=== PATIENT | male | born 1990 | race Caucasian/White ===

== ENCOUNTER 2024-04-25 14:13 | Emergency (ER) | payer OTHER, SELFPAY ==
[2024-04-25 14:15] VITALS: BP 145/92; PULSE 99; RESP 16; TEMP 36.2; O2SAT 97; BMI 31.9
--- NOTE | 2024-04-25 14:48 | EX.ED.DYSGE1 ---
HPI History of Present Illness Chief Complaint: Fever Informant: patient and spouse/S.O. Narrative Narrative: 34-year-old male presenting to the emergency room with fever. Patient states that about 1 week ago he noticed a circular erythematous rash on the dorsum of his foot at the base of the second and the third toe. Over the weekend he dropped a ladder which he thought hit the big toe but now there is some bruising where the rash was. He also notes a circular rash on his mid anterior chest. And a third circular rash on his left lower lumbar region. He notes generalized myalgias left ear pain occipital head pressure generalized neck soreness and woke today with a bit of a sore throat. No diarrhea or vomiting. He is at 103 fever for 72 hours. He does not recall any insect bites or sick contacts. 3 children and his at home are well. He states that he traveled to [place] 3 to 4 weeks ago to look at some property. He pulled the tick off his clothing but does not recall any bites. He has well water at home. He has been using Advil to reduce fever. He saw chiropractor this morning which did not help his neck. PFSH PFS Medical History no medical history no medical history Home Medications ?Medication ?Instructions ?Recorded ?Last Taken ?Type doxycycline monohydrate 100 mg 100 mg PO BID #20 CAPSULES 04/25/24 Unknown Rx capsule Allergy/AdvReac Type Severity Reaction Status Date / Time No Known Allergies Allergy Verified 04/25/24 14:16 Surgical History no surgical history no surgical history Social History Smoking Status: Never smoker [facility] ED Constitutional Constitutional ED: Reports fever(s); Denies chills or weight loss Eyes Eyes: Denies change in vision or diplopia ENT ENT ED: Reports ear pain and sore throat; Denies rhinorrhea Cardiovascular Cardiovascular: Denies chest pain, orthopnea, palpitations or racing heartbeat Respiratory/Chest Respiratory/Chest: Denies cough, dyspnea or orthopnea Gastrointestinal Gastrointestinal: Denies abdominal pain, diarrhea, nausea or vomiting Genitourinary Genitourinary ED: Denies dysuria, hematuria or urinary frequency Musculoskeletal Musculoskeletal: Reports neck pain; Denies arthralgias or myalgias Integumentary Reports rash; Denies abscess Neurologic Neurologic: Reports headache(s); Denies weakness Psychiatric Psychiatric: Denies anxiety, depression, suicidal ideation or suicidal thoughts Endocrine Endocrinology: Denies polydipsia, polyphagia or polyuria Allergic/Immunologic Allergic/Immunologic ED: Denies mouth swelling, tongue swelling or urticaria EXAM Physical Exam Const Vital Signs: 04/25/24 14:15 04/25/24 15:10 04/25/24 15:37 Temperature 97.2 F L 99.8 F H Temperature Source Temporal Oral Pulse Rate 99 84 Respiratory Rate 16 19 H Respiratory Effort Normal Respiratory Pattern Normal Blood Pressure 145/92 H 131/82 H Blood Pressure Mean 109 98 Pulse Ox 97 95 Oxygen Delivery Method Room Air Room Air 04/25/24 17:00 04/25/24 18:01 Temperature 98.3 F 98.1 F Temperature Source Oral Pulse Rate 82 84 Respiratory Rate 18 17 Respiratory Effort Respiratory Pattern Blood Pressure 119/84 H 136/67 H Blood Pressure Mean 95 90 Pulse Ox 97 99 Oxygen Delivery Method Room Air Positive well nourished and well developed General Appearance ED: well developed HEENT Reports normocephalic, head/scalp atraumatic and moist mucous membranes HEENT Narrative: There is slight erythema of the left tympanic membrane. There are some small less than half centimeter nontender palpable lymph nodes in the posterior chain. Mild pharyngeal erythema without exudate. No petechiae noted. There is no photophobia. Eyes PERRL and EOMs intact bilaterally Neck supple and no JVD Neck Narrative: Patient does not appear to have limitation in neck movement with direct testing either rotational sidebending or flexion extension. General: Negative for tenderness Resp normal respiratory effort and clear to auscultation bilaterally Cardio regular rate, regular rhythm and no murmurs GI normal to inspection, nondistended, normoactive bowel sounds and non-tender Palpation: soft Back/Spine no CVA tenderness and normal ROM Extremity normal to inspection General Extremety ED: Negative for edema General Extremity: Negative for edema Neuro oriented x3 and CN's II-XII intact bilaterally Sensorium / Orientation: alert Motor Exam: strength 5/5 throughout Psych mental status grossly normal Mood & Affect: Negative for depressed or tearful Skin no wounds Skin Narrative: Anterior chest demonstrates approximate 9 cm ovoid flat erythematous blanching rash. There is no central clearing. There is an approximately 3 cm round erythematous flat rash in the left lower lumbar skin. There is a flat erythematous rash circular of about 3 centimeters on the dorsum of the left foot at the base of the second and third toe with central ecchymosis. The erythema blanches. There is another rash in the left axilla that is similar to the others measuring 6 cm MDM MDM MDM Narrative Medical decision making narrative: Differential diagnosis includes but not limited to sepsis encephalitis/meningitis otitis media pharyngitis Shaheed-Ambrosio virus Lyme disease bacteremia NOS pneumonia UTI dehydration White blood cell count 6.3 with 8.1 lymphocytes 76 neutrophils 12.1 monocytes. Hemoglobin 14.8. BMP shows a glucose of 115. Normal anion gap CO2 of 23. Slight elevation of AST and ALT and elevated total bilirubin and direct bilirubin. Urinalysis is normal. Monoscreen is negative. Strep swab, RSV influenza and COVID test are negative. Magnapen interpretation of the chest x-ray is no acute process. My independent interpretation the plain films of the right foot is middle phalanx fracture of the second toe. Patient however is not tender here. The area of ecchymosis is more proximal to this. The fracture line I see only on 1 view. Patient received IV fluids and Toradol. Blood cultures were obtained. Lyme screen was sent. Pictures of the rash were taken for the medical record. Case and rash was discussed with infectious disease Dr. Randall. I spoke with the patient and his . We talked about the possibility of a lumbar puncture. However given his clinical presentation the fact that he clinically appears well has no photophobia no stiff neck no significant pain with movement of the neck a occipital headache I do question the risk-benefit advantage of doing an LP. They are in agreement of waiting. In speaking with infectious disease the recommendation will be to place him on a 10-day course of doxycycline. We talked about a very detailed return instructions and they note understanding of this. History & Record Review Discussion w/independent historian: Patient and Significant other Lab Data Attestation: I reviewed the patient's lab results. Labs: Laboratory Results - last 24 hr 04/25/24 04/25/24 15:03 16:28 WBC 6.3 RBC 4.92 Hgb 14.8 Hct 42.9 MCV 87.2 MCH 30.1 MCHC 34.5 RDW Std Deviation 40.8 RDW Coeff of Zachary 12.8 Plt Count 144 L MPV 8.1 Immature Gran % (Auto) 1.100 H Neut % (Auto) 76.0 H Lymph % (Auto) 8.1 L [place] % (Auto) 12.1 H Eos % (Auto) 1.9 Baso % (Auto) 0.8 Absolute Neuts (auto) 4.8 Absolute Lymphs (auto) 0.51 L Nucleated RBC % 0 Sodium 135 L Potassium 3.6 Chloride 104 Carbon Dioxide 23.0 Anion Gap 8 BUN 9 Creatinine 1.08 Estim Creat Clear Calc 124.06 Est GFR (MDRD) Af Amer 102 Est GFR (MDRD) Non-Af 84 BUN/Creatinine Ratio 8.3 L Glucose 115 H Calcium 9.0 Total Bilirubin 2.60 H Direct Bilirubin 0.51 H AST 90 H ALT 101 H Alkaline Phosphatase 88 Total Protein 7.8 Albumin 3.7 Globulin 4.1 Urine Color Yellow Urine Clarity Clear Urine pH 6.5 Ur Specific Fifield 1.010 Urine Protein 30 H Urine Glucose (UA) Normal Urine Ketones Negative Urine Occult Blood Negative Urine Nitrite Negative Urine Bilirubin Negative Urine Urobilinogen 4 H Ur Leukocyte Esterase Negative Urine RBC 0 SEEN Urine WBC 0 SEEN Ur Squamous Epith Cells 0 SEEN Urine Bacteria 0 SEEN Urine Mucus 0 SEEN Monoscreen Negative Radiography Diagnostic Testing: Clinical Impression(s) from Imaging Studies Foot X-Ray 04/25/24 14:52 IMPRESSION: Normal x-ray examination of the foot. Electronically Signed: Tae Mccurdy MD at 15:15 EDT , Chest X-Ray 04/25/24 15:01 IMPRESSION: Normal x-ray examination of the chest. Electronically Signed: Tae Mccurdy MD at 15:14 EDT , Management Discussion w/another healthcare provider: Nurse Case Management (Dr. Marques (ID)) Discharge Plan Triage Chief Complaint: Fever ED Provider: Nilton Macias Dx/Rx/DC Orders Clinical Impression: Acute febrile illness, Rash, Elevated liver enzymes Instructions: ED FUO Adult Prescriptions: New doxycycline monohydrate 100 mg capsule 100 mg PO BID Qty: 20 0RF Primary Care Provider: Care Physician,No Primary Referrals: Travis Marques MD [Med Staff - Active Staff] - 1-2 Weeks Care Physician,No Primary [Primary Care Provider] - Print Language: Maltese Disposition Disposition: Home, Self Care Discharge Date/Time: 04/25/24 18:03
--- NOTE | 2024-04-25 14:52 | RAD_ITS ---
STUDY: X-RAY - LEFT FOOT CLINICAL: Male, 34 years old. Injury TECHNIQUE: 4 view(s) of the foot. COMPARISON: None. FINDINGS: Normal talus, calcaneus, and tarsal bones. Normal visualized subtalar, talonavicular, calcaneocuboid, tarsal and tarsometatarsal articulations. Normal metatarsi. Normal metatarsophalangeal joint of the great toe. There is a bipartite fibula sesamoid. Normal interphalangeal joint of the great toe. Normal phalanges of the great toe. Normal second through fifth metatarsophalangeal joints. Normal interphalangeal joints and phalanges of the lesser toes. The soft tissue structures are unremarkable. RAD/Foot min 3 Views IMPRESSION: Normal x-ray examination of the foot. Electronically Signed: Tae Mccurdy MD at 15:15 EDT ,
--- NOTE | 2024-04-25 15:01 | RAD_ITS ---
STUDY: X-RAY CHEST REASON FOR EXAM: Male, 34 years old. Fever TECHNIQUE: Single AP portable view of the chest. COMPARISON: None. FINDINGS: The lungs are clear and expanded. There is no demonstrated pleural abnormality. Normal size heart. Normal mediastinum and demetrio. Normal visualized pulmonary arteries. Normal visualized aortic arch and descending thoracic aorta. Normal visualized thoracic spine. Normal visualized ribs, clavicles, and shoulders. There is no demonstrated abnormality of the visualized soft tissue structures of the upper abdomen. RAD/Chest 1 View (Portable) IMPRESSION: Normal x-ray examination of the chest. Electronically Signed: Tae Mccurdy MD at 15:14 EDT ,
--- NOTE | 2024-04-25 15:10 | ED.RN ---
Left Lower back Left Lower Back Chest Left Foot Left Axillary Left Axillary
[2024-04-25 15:19] LABS: Absolute Lymphocyte Count 0.51 X10^3/uL (0.83-4.51); Absolute Neutrophil Count 4.8 X10^3/uL (2.0-7.7); Basophil# 0.05 X10^3/uL; Basophil% 0.8 % (0-1); Eosinophil# 0.12 X10^3/uL; Eosinophils% 1.9 % (0-5); Hematocrit 42.9 % (40-54); Hemoglobin 14.8 g/dL (13.0-16.5); Lymphocyte # 0.51 X10^3/ul (0.83-4.51); Lymphocyte % 8.1 % (19-41); Mean Corp Hgb Conc 34.5 g/dL (32-36); Mean Corpuscular Hgb 30.1 pg (27.0-32.0); Mean Corpuscular Volume 87.2 fL (80-94); Mean Platelet Vol. 8.1 fl (6.2-12.0); Monocyte# 0.76 X10^3/uL; Monocyte% 12.1 % (0-10); NRBC Flagged by Analyzer 0 % (0-5); Neutrophil # 4.77 X10^3/uL (2.7-7.7); POSITIVE DIFFERENTIAL YES; Platelet Count 144 K/mm3 (150-450); RBC Distribution Width CV 12.8 % (11.6-14.6); RBC Distribution Width SD 40.8 fl (35.1-43.9); Red Blood Count 4.92 M/mm3 (4.6-6.2); White Blood Count 6.3 K/mm3 (4.4-11.0)
[2024-04-25] MEDS: 0.9% Normal Saline (1000mL) 1,000 ML 1000 ML IV (15:20)
[2024-04-25] MEDS: 0.9% Normal Saline (1000mL) 1,000 ML 250 ML IV (15:20)
[2024-04-25] MEDS: Ketorolac 30 MG/ML Syringe IV (15:21)
[2024-04-25 15:31] LABS: AST(SGOT) 90 U/L (15-37); Alanine Aminotransfer ALT/SGPT 101 U/L (16-61); Albumin, Serum 3.7 g/dL (3.2-5.0); Alkaline Phosphatase 88 U/L (45-117); Anion Gap 8 (5-15); BUN 9 mg/dL (7-18); BUN/Creat Ratio 8.3 RATIO (10-20); Bilirubin, Direct 0.51 mg/dL (0.00-0.30); Chloride 104 mmol/L (98-107); Creatinine, Serum 1.08 mg/dL (0.70-1.30); EST Glomerular Filtration Rate 84 mL/min (>60); Est Glom Filt Rate - Afr Amer 102 mL/min (>60); Estimated Creatinine Clearance 124.06 ml/min; Globulin 4.1 g/dL (2.2-4.2); Glucose 115 mg/dL (74-106); Potassium 3.6 mmol/L (3.5-5.1); Protein, Total 7.8 g/dL (6.4-8.2); Sodium Level 135 mmol/L (136-145)
[2024-04-25 15:37] VITALS: BP 131/82; PULSE 84; RESP 19; TEMP 37.7; O2SAT 95
[2024-04-25 16:13] LABS: Internal QC Validated? YES +Cl - CLEAR BKGD; Monotest Negative (Negative); Record Kit Lot#, Mono 13241933
[2024-04-25 16:32] LABS: Bacteria 0 SEEN /hpf (None Seen); Mucous, Urine 0 SEEN /hpf (<or=2+); Red Blood Cells-Urine 0 SEEN /hpf (0-5); Squamous Epithelial Cells - UA 0 SEEN /hpf (0-5); White Blood Cells 0 SEEN /hpf (0-5)
[2024-04-25 16:44] LABS: Color, Urine Yellow (Yellow); Glucose, Dipstick Normal (Normal); Ketone-Dipstick Negative (Negative); Leukocyte Esterase-Dipstick Negative /ul (Negative); Nitrite-Dipstick Negative (Negative); Occult Blood-Urine Negative /ul (Negative); Protein-Dipstick 30 mg/dl (Negative); Urine Bilirubin Dipstick Negative (Negative); Urine Clarity Clear (Clear); Urine Urobilinogen 4 mg/dl (Normal); Urine pH 6.5 (5.0 - 8.0)
[2024-04-25 17:00] VITALS: BP 119/84; PULSE 82; RESP 18; TEMP 36.8; O2SAT 97
[2024-04-25 18:01] VITALS: BP 136/67; PULSE 84; RESP 17; TEMP 36.7; O2SAT 99
[2024-04-27 12:09] LABS: Lyme Scn Total Ab w/Rflx Negative (Negative)
== END 2024-04-25 18:03 | disposition home or self-care (01) ==
PROVIDERS: Emergency Provider Emergency Medicine; Visit Provider Emergency Medicine
DX: R50.9 Fever, unspecified (principal); S90.32XA Contusion of left foot, initial encounter; W20.8XXA Other cause of strike by thrown, projected or falling object, initial encounter; R74.8 Abnormal levels of other serum enzymes; R21 Rash and other nonspecific skin eruption; M79.10 Myalgia, unspecified site; H92.02 Otalgia, left ear; J02.9 Acute pharyngitis, unspecified; M54.2 Cervicalgia; R51.9 Headache, unspecified; Z11.52 Encounter for screening for COVID-19
CPT/HCPCS: 71045; 73630; 80048; 80076; 81001; 85025; 86308; 86618; 87040; 87631; 87651; 96361; 96374; 99283; J7030